=== PATIENT | male | born 1995 | race Two or more races ===

== ENCOUNTER 2023-10-29 09:57 | Emergency (ER) | payer OTHER ==
[~2023-10-29] VITALS: Ht 188 cm; Wt 86.2 kg
[2023-10-29 10:02] VITALS: TEMP 98.3
[2023-10-29] MEDS ORDERED: LIDO30AD10 TP (10:51)
[2023-10-29] MEDS ORDERED: IBUP-1955 PO (10:51)
[2023-10-29] MEDS ORDERED: CYCL5TAB PO (10:51)
[2023-10-29 11:51] VITALS: BP 136/70; O2SAT 98
== END 2023-10-29 11:53 | disposition home or self-care (01) ==
LOC: ER 09:57
DX: S46.812A Strain of other muscles, fascia and tendons at shoulder and upper arm level, left arm, initial encounter (principal); R07.89 Other chest pain; M54.50 Low back pain, unspecified; Z79.899 Other long term (current) drug therapy; V89.2XXA Person injured in unspecified motor-vehicle accident, traffic, initial encounter; Y93.89 Activity, other specified; Y92.89 Other specified places as the place of occurrence of the external cause; Y99.8 Other external cause status
CPT/HCPCS: 71045-TC; 73000-TC; 73030-TC